=== PATIENT | female | born 1990 | race Caucasian/White ===

== ENCOUNTER 2017-01-25 16:40 | Emergency (ER) | payer SELFPAY ==
[2017-01-25] MEDS ORDERED: Acetaminophen TAB* 325 MG PO ONE (18:24)
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
[2017-01-25 18:44] VITALS: BP 131/65
== END 2017-01-25 18:43 | disposition home or self-care (01) ==
LOC: ED 16:40
DX: S09.90XA Unspecified injury of head, initial encounter (principal); R51 Headache; V49.9XXA Car occupant (driver) (passenger) injured in unspecified traffic accident, initial encounter; Y93.9 Activity, unspecified; Y92.9 Unspecified place or not applicable
CPT/HCPCS: 99282; A9270-GY